=== PATIENT | female | born 1955 | race Two or more races ===

== ENCOUNTER 2022-05-14 10:28 | Emergency (ER) | payer BC ==
[~2022-05-14] VITALS: Ht 172.7 cm; Wt 59.0 kg
[2022-05-14] MEDS ORDERED: TOPROL XL100 M1 PO (10:48)
[2022-05-14] MEDS ORDERED: LEXAPRO5 MG (10:49)
[2022-05-14] MEDS ORDERED: ATORVASTATIN CA10 MG (10:49)
[2022-05-14] MEDS ORDERED: BENICAR20 MG PO (10:50)
[2022-05-14] MEDS ORDERED: LIPITOR20 MG PO (10:50)
[2022-05-14] MEDS ORDERED: CIPRO500 MG PO (14:59)
[2022-05-14] MEDS ORDERED: METRONIDAZOLE500 MG PO (14:59)
== END 2022-05-14 17:36 | disposition home or self-care (01) ==
LOC: ER 10:28
DX: K57.32 Diverticulitis of large intestine without perforation or abscess without bleeding (principal); N28.1 Cyst of kidney, acquired

== ENCOUNTER 2024-07-26 10:17 | Outpatient (CLI) | payer BC, OTHER ==
[~2024-07-26 10:17] MED LIST: ATORVASTATIN CA10 MG; BENICAR20 MG PO; CIPRO500 MG PO; LEXAPRO5 MG; LIPITOR20 MG PO; METRONIDAZOLE500 MG PO; TOPROL XL100 M1 PO
== END 2024-07-26 10:26 | disposition home or self-care (01) ==
LOC: MAMO-SONO 10:17
PROVIDERS: ATTEND Internal Medicine
DX: N64.4 Mastodynia (principal); Z12.31 Encounter for screening mammogram for malignant neoplasm of breast; M54.50 Low back pain, unspecified; E78.1 Pure hyperglyceridemia; I11.9 Hypertensive heart disease without heart failure; Z93.3 Colostomy status; N95.1 Menopausal and female climacteric states

== ENCOUNTER → 2024-07-26 12:21 | Outpatient (CLI) | payer BC, OTHER ==
[2024-07-26 13:32] LABS: CREATININE SERUM 0.98 mg/dL (0.55-1.02); GFR 56.27
== END | disposition home or self-care (01) ==
LOC: LAB 12:21
PROVIDERS: ATTEND Radiology Diagnostic Radiology
DX: R10.84 Generalized abdominal pain (principal)

== ENCOUNTER 2024-07-28 10:02 | Outpatient (CLI) | payer BC, OTHER | END 2024-07-28 10:10 | disposition home or self-care (01) | LOC: TOM 10:02 | PROVIDERS: ATTEND Internal Medicine | DX: R10.84 Generalized abdominal pain (principal) ==

== ENCOUNTER 2025-03-23 09:00 | Outpatient (CLI) | payer OTHER, BC | END 2025-03-23 09:08 | disposition home or self-care (01) | LOC: TOM 09:00 | PROVIDERS: ATTEND Surgery | DX: Z93.3 Colostomy status (principal); K63.0 Abscess of intestine; K57.30 Diverticulosis of large intestine without perforation or abscess without bleeding | CPT/HCPCS: 74177; Q9965 ==

== ENCOUNTER 2025-04-26 08:03 | Outpatient (CLI) | payer OTHER | END 2025-04-26 08:06 | disposition home or self-care (01) | LOC: SONOGRAMA 08:03 | PROVIDERS: ATTEND Surgery | DX: K57.30 Diverticulosis of large intestine without perforation or abscess without bleeding (principal); K63.2 Fistula of intestine; K80.18 Calculus of gallbladder with other cholecystitis without obstruction; Z93.3 Colostomy status ==